=== PATIENT | female | born 1975 | race Caucasian/White ===

== ENCOUNTER 2016-12-06 16:56 | Emergency (ER) | payer OTHER ==
[~2016-12-06] VITALS: Ht 165.1 cm; Wt 97.5 kg
[2016-12-06 17:12] VITALS: Ht 165.1 cm; Wt 97.5 kg
[2016-12-06] MEDS ORDERED: ONDANSETRON (ODT) 4 MG TAB ODT STA ×2 (19:53→21:48)
[2016-12-06] MEDS ORDERED: HYDROCODONE/APAP (5/325) TAB PO ONE (20:00)
--- NOTE | 2016-12-06 20:02 | ERD ---
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 Patient states that 4 weeks ago she had similar pain and went [facility] and they did a workup on her and told her that she did not have a PE. Patient indicated she did have a history of a PE in 2016. States she also had shingles in 2016 and was given acyclovir approximately 10 days ago for possible reactivation. Patient denies any cough. States that she feels that her legs are swollen based on the way her shoes fit. States she has not taken any medication for the pain. Denies any leg pain. Denies any fevers or chills. Denies any abdominal pain. ROS All systems reviewed and are negative except as per history of present illness. Medications Home Meds Active Scripts Ondansetron Hcl* (Zofran*) 4 Mg Tablet, 4 MG PO Q6H for NAUSEA AND/OR VOMITING, #30 TAB Prov:SHAYLEE SARABIA PA-C 12/06/16 Tramadol HCl (Tramadol HCl) 50 Mg Tablet, 50 MG PO Q4 Y for PAIN, #20 TAB Prov:SHAYLEE SARABIA PA-C 12/06/16 PMhx/Soc Hx Neurological Disorder: Yes (Migraines) Hx Respiratory Disorders: Yes (PE) Hx Miscellaneous Medical Probl: Yes (DM II, Shingles) Hx Alcohol Use: No Hx Substance Use: No Hx Tobacco Use: No Smoking Status: Never smoker Physical Exam Vitals Vital Signs Date Time Temp Pulse Resp B/P Pulse Ox O2 Delivery O2 Flow Rate FiO2 12/06/16 17:12 98.6 76 18 137/76 100 Physical Exam Const: NAD Head: Atraumatic Eyes: Normal Conjunctiva ENT: Ears TMs normal. Nose no drainage. Throat no erythema no exudate peer Neck: Full range of motion..~ No meningismus. Resp: Clear to auscultation bilaterally. No absent breath sounds. No wheezing. Cardio: Regular rate and rhythm, no murmurs Abd: Soft, non tender, non distended. Normal bowel sounds Skin: No petechiae or rashes. No evidence of shingles. No vesicles. No erythema or warmth. Back: No midline or flank tenderness Ext: No cyanosis, or edema. Nontender bilateral calves. No erythema or warmth. Neur: Awake and alert Psych: Normal Mood and Affect Results 24 hrs Current Medications Medications (Trade) Dose Ordered Sig/Macy Route PRN Reason Start Time Stop Time Status Last Admin Dose Admin Acetaminophen/ Hydrocodone Bitart ([place] (5/325)) 1 tab ONCE ONCE PO 12/06/16 20:00 12/06/16 20:01 DC 12/06/16 20:43 Ondansetron HCl (Zofran Odt) 4 mg ONCE STAT ODT 12/06/16 19:53 12/06/16 19:57 DC 12/06/16 20:43 Ondansetron HCl (Zofran Odt) 4 mg ONCE STAT ODT 12/06/16 21:48 12/06/16 21:49 DC DIAGNOSTIC IMAGING REPORT Patient: SERENA ROMEO : 1975 Age: 41 Sex: F MR #: [id number] DOS: 12/06/16 0000 Ordering MD: SHAYLEE SARABIA PA-C Location: [facility] Room/Bed: PROCEDURE: US Lower extremity Venous. CLINICAL INDICATION: HX PE, swelling TECHNIQUE: Multiple sonographic images of the bilateral lower extremity deep venous system was obtained utilizing grayscale, color-flow, compressive sonography and doppler imaging with augmentation. The images were reviewed on a PACS workstation. COMPARISON: None. FINDINGS: There is normal compressibility and flow within the bilateral common femoral, deep femoral, superficial femoral and popliteal veins. The deep veins the calf were incompletely visualized. IMPRESSION: No sonographic evidence for deep venous thrombosis in the bilateral lower extremities. Physician Petros Date Time Electronically viewed and signed by Pelon Bassett Physician on 12/06/2016 20 :34 ML/ CC: SHAYLEE SARABIA PA-C DIAGNOSTIC IMAGING REPORT Patient: SERENA ROMEO : 1975 Age: 41 Sex: F MR #: [id number] DOS: 12/06/16 0000 Ordering MD: SHAYLEE SARABIA PA-C Location: E Room/Bed: PROCEDURE: XR Chest. CLINICAL INDICATION: Pain right side lung oconnor TECHNIQUE: Single frontal view of the chest was obtained COMPARISON: None FINDINGS: The heart and mediastinum are within normal limits. The lungs are clear. There is no pleural effusion or pneumothorax. IMPRESSION: No acute disease. RPTAT: HJES .Jayson Hernandez MD, MD Date Time Electronically viewed and signed by .Jayson Hernandez MD, on 12/06/2016 21:30 .S/ CC: SHAYLEE SARABIA PA-C Procedures/MDM This a 41-year-old female who presents to the emergency department today complaining of shortness of breath for the past few hours and sharp stabbing pain on the right side of her lung oconnor. Patient was reporting that she thinks that she has bilateral leg swelling and she is concerned that she may have a PE despite being seen at [facility] 4 weeks ago and ruled out negative for PE. Patient does take Xarelto daily since May. I discussed the patient with Dr. Rosen and based on patients physical and vital signs, the recommendation was made to obtain a Doppler to rule out DVT as well as a chest x-ray. Chest x-ray shows no acute disease. There is no pleural effusion or pneumothorax. Bilateral Lower extremity ultrasound shows no sonographic evidence for deep vein thrombosis in the bilateral lower extremities. Patient is afebrile and otherwise well-appearing. Her oxygen saturations 100%. She is not tachycardic. Her pulse is 76 and have low suspicion for PE, pneumonia, pleural effusion, pneumothorax. Patient did bring her documentation with her from [facility] from her visit on November 03, 2016. Patient had a full workup done and her CT showed no pericardial effusion. No pleural effusion. There is no evidence of pulmonary embolism. There was a stable appearance of a heterogeneous enlarged right thyroid with a possible nodule. Patient has shortness of breath of uncertain etiology. Sharp stabbing pain may be related to costochondritis versus postherpetic neuralgia from the area where she had shingles in the past patient was given [place] and Zofran here in the emergency department. I will give her prescription for tramadol and Zofran. At this time the patient is stable for discharge and outpatient management. Patient should follow up with their PCP in the next 1-2 days. They may return to the emergency department sooner for any persistent or worsening of symptoms. Patient understood and agreed with the plan. Discussed the patient with Jessika and she is in agreement with the plan. Departure Diagnosis: Primary Impression: Shortness of breath Condition: SHAYLEE Gómez PA-C Dec 06, 2016 20:02
--- NOTE | 2016-12-06 20:34 | RADRPT ---
PROCEDURE: US Lower extremity Venous. CLINICAL INDICATION: HX PE, swelling TECHNIQUE: Multiple sonographic images of the bilateral lower extremity deep venous system was obt ained utilizing grayscale, color-flow, compressive sonography and doppler imaging with augmentation. The images were reviewed on a PACS workstation. COMPARISON: None. FINDINGS: There is normal compressibility and flow within the bilateral common femoral, deep femoral, superfic ial femoral and popliteal veins. The deep veins the calf were incompletely visualized. IMPRESSION: No sonographic evidence for deep venous thrombosis in the bilateral lower extremities. Physician Petros Date Time Electronically viewed and signed by Physician Petros on 12/06/2016 20:34 ML/
--- NOTE | 2016-12-06 21:30 | RADRPT ---
PROCEDURE: XR Chest. CLINICAL INDICATION: Pain right side lung oconnor TECHNIQUE: Single frontal view of the chest was obtained COMPARISON: None FINDINGS: The heart and mediastinum are within normal limits. The lungs are clear. There is no pleural effusion or pneumothorax. IMPRESSION: No acute disease. RPTAT: HJES .Jayson Hernandez MD, Date Time Electronically viewed and signed by .Jayson Hernandez MD, on 12/06/2016 21:30 .S/
[2016-12-06] MEDS ORDERED: TRAM50TA2 PO (21:49)
[2016-12-06] MEDS ORDERED: ONDA4TAB8 PO (21:49)
[2016-12-06 22:11] VITALS: BP 163/84; PULSE 76; RESP 16
== END 2016-12-06 22:14 | disposition home or self-care (01) ==
LOC: FTE 16:56
DX: R06.02 Shortness of breath (principal); E11.9 Type 2 diabetes mellitus without complications
CPT/HCPCS: 71010; 93970; Z7502; Z7610